=== PATIENT | female | born 1995 | race Caucasian/White ===

== ENCOUNTER 2025-08-04 21:16 | Emergency (ER) | payer SELFPAY ==
[~2025-08-04] VITALS: Ht 162.5 cm; Wt 50.8 kg
[2025-08-04] MEDS ORDERED: SODIUM CHLORIDE 0.9% 1,000 ML IV ONE (22:20)
[2025-08-04 22:39] LABS: BASO # 0.1 10*3/uL (0.0-0.1); BASO % 0.5 % (0.0-1.0); EOS # 0.1 10*3/uL (0.0-0.4); EOS % 1.0 % (1.0-4.0); MEAN CELL VOLUME 89.0 fl (81.0-99.0); MEAN CORPUSCULAR HGB 30.2 pg (27.0-31.0); MEAN PLATELET VOLUME 10.8 fl (9.6-12.3); MONO # 0.6 10*3/uL (0.1-1.0); MONO % 6.5 % (3.0-9.0); NEUT # 7.3 10*3/uL (2.3-7.9); NEUT % 78.3 % (47.0-73.0); NUCLEATED RED BLOOD CELL 0.0 % (0.0-0.0); NUCLEATED RED BLOOD CELL 0.0 10*3/uL (0.0-0.0); PLATELET COUNT AUTOMATED 285 10*3/uL (130-400); RED CELL DISTRI WIDTH 12.8 % (0-14.5)
[2025-08-04 23:11] LABS: BILIRUBIN Negative (Negative); BLOOD 3+ (Negative); CLARITY Clear (Clear); COLOR Red (Yellow); KETONE 1+ (Negative); LEUKO ESTERASE Trace (Negative); NITRITE Negative (Negative); PH 7.0 (4.5-8.0); SPECIFIC GRAVITY 1.010 (1.001-1.030); UROBILINOGEN 0.2 E.U./dl (0.0-1.0)
[2025-08-04 23:14] LABS: BUN 11 mg/dl (9-23)
[2025-08-04 23:16] LABS: BETA-HCG, QUANT 7689.0 mIU/mL (3-10)
[2025-08-04 23:25] LABS: RBC 51-100 rbc/hpf (0-2); WBC 0-2 wbc/hpf (0-5)
== END 2025-08-05 00:28 | disposition home or self-care (01) ==
LOC: ED 21:16
PROVIDERS: Internal Medicine
DX: O03.9 Complete or unspecified spontaneous abortion without complication (principal)